=== PATIENT | male | born 1960 | race Caucasian/White ===

== ENCOUNTER 2021-12-17 13:24 | Inpatient (IN) | payer OTHER ==
[~2021-12-17] VITALS: Ht 188 cm; Wt 122.7 kg
[2021-12-17 14:42] LABS: ALANINE AMINOTRANSFERASE 68 U/L (12-78); ALBUMIN 3.4 G/DL (3.4-5.0); ALBUMIN/GLOBULIN RATIO 0.9 (1.1-1.5); ALKALINE PHOSPHATASE 93 IU/L (46-116); ANION GAP 10 (8-16); ASPARTATE AMINO TRANSFERASE 50 U/L (10-37); BILIRUBIN,TOTAL 0.6 MG/DL (0.1-1.0); BLOOD UREA NITROGEN 18 MG/DL (7-18); BUN/CREATININE RATIO 15.4 (5.4-32.0); CALCIUM 9.1 MG/DL (8.5-10.1); CHLORIDE 107 MMOL/L (99-107); CREATININE 1.17 MG/DL (0.60-1.10); GLUCOSE 144 MG/DL (70-104); SODIUM 144 MMOL/L (135-145); TOTAL CARBON DIOXIDE 26.6 MMOL/L (24-32); TOTAL PROTEIN 7.4 G/DL (6.4-8.2); eGFR 63 ML/MIN
[2021-12-17 15:38] LABS: BASOPHILS # (AUTO) 0.1 X10'3 (0-0.2); BASOPHILS % (AUTO) 0.7 % (0-1); EOSINOPHILS # (AUTO) 0.2 X10'3 (0-0.9); EOSINOPHILS % (AUTO) 2.1 % (0-6); HEMATOCRIT 40.5 % (42.0-52.0); HEMOGLOBIN 13.5 g/dl (14.0-17.9); LYMPHOCYTES # (AUTO) 1.7 X10'3 (1.1-4.8); LYMPHOCYTES % (AUTO) 18.5 % (21-51); MEAN CORPUSCULAR HEMOGLOBIN 30.5 PG (27.0-31.0); MEAN CORPUSCULAR HGB CONC 33.4 g/dL (33.0-36.5); MEAN CORPUSCULAR VOLUME 91.2 FL (78-98); MONOCYTES % (AUTO) 11.4 % (2-12); NEUTROPHILS # (AUTO) 6.2 X10'3 (1.8-7.7); NEUTROPHILS % (AUTO) 67.3 % (42-75); RED BLOOD COUNT 4.45 X10'6 (4.70-6.10); WHITE BLOOD COUNT 9.2 X10'3 (4.5-11.0)
[2021-12-17 15:52] LABS: PLATELET COUNT 140 X10'3 (140-440)
[2021-12-17 15:56] LABS: MEAN PLATELET VOLUME 8.1 FL (7.4-10.4)
[2021-12-17] MEDS ORDERED: metoprolol tartrate 50mg tablet PO ONE (16:25)
[2021-12-17] MEDS ORDERED: enoxaparin 100mg/ml syringe SUBCUT ONE (16:25)
[2021-12-17] MEDS ORDERED: magnesium hydroxide 30ml (MOM) UD suspension PO PRN (16:40)
[2021-12-17] MEDS ORDERED: PERFLUTREN PROTEIN-A MICROSPHR (Optison) 0.22 MG/ML 3ML VIAL IV ONE (16:40)
[2021-12-17] MEDS ORDERED: acetaminophen 325mg tablet PO PRN (16:40)
[2021-12-17] MEDS ORDERED: mag hydrox/Alum hydrox/simeth 30ml oral suspension PO PRN (16:40)
[2021-12-17] MEDS ORDERED: ondansetron/PF 4mg/2ml inj IV PRN (16:40)
[2021-12-17] MEDS ORDERED: nitroGLYCERIN 0.4mg/hour patch TD ONE (16:45)
[2021-12-17] MEDS ORDERED: furosemide 10 MG/1 ML 10ml inj IV ONE (16:45)
[2021-12-17] MEDS ORDERED: NO HOME MEDS (16:54)
[2021-12-17 17:29] LABS: URINE AMPHETAMINE SCREEN POSITIVE (Neg); URINE BARBITUATE SCREEN NEGATIVE (Neg); URINE BENZODIAZEPINES SCREEN NEGATIVE (Neg); URINE CANNABINOID SCREEN NEGATIVE (Neg); URINE COCAINE SCREEN NEGATIVE (Neg); URINE METHADONE SCREEN NEGATIVE (Neg); URINE OPIATE SCREEN NEGATIVE (Neg); URINE PHENCYCLIDINE SCREEN NEGATIVE (Neg)
[2021-12-17 17:59] LABS: CLARITY,URINE SLIGHTLY CLOUDY (Clear); COLOR,URINE YELLOW (Yellow); GLUCOSE, URINE NEGATIVE (Neg); KETONES,URINE TRACE mg/dl (Neg); LEUKOCYTE ESTERASE ,URINE NEGATIVE (Neg); NITRITES, URINE NEGATIVE (Neg); OCCULT BLOOD,URINE TRACE-INTACT (Neg); PROTEIN,URINE >=300 mg/dl (Neg)
[2021-12-17 18:02] LABS: UA COLLECTION TYPE VOIDED
[2021-12-17 18:17] LABS: BACTERIA,URINE NONE SEEN /HPF (Neg); MUCUS STRANDS MANY /LPF (Neg); RBC,URINE 0-2 /HPF (0-2); SQUAMOUS EPITHELIAL CELL,UR FEW /LPF (FEW); WBC,URINE 0-4 /HPF (0-4)
[2021-12-17 18:18] LABS: CAL OXALATE CRYSTALS 4+ /HPF (NEGATIVE); FINE GRANULAR CAST 0-3 /LPF (NEGATIVE); HYALINE CASTS 0-3 /LPF (NEGATIVE)
[2021-12-17] MEDS: normal saline 1000ml 1,000 ML IV SCH (19:10)
[2021-12-17] MEDS: apixaban 5mg tablet PO SCH (20:43)
[2021-12-17] MEDS: docusate sod 100mg capsule PO SCH (20:44)
--- NOTE | 2021-12-18 06:45 | NUR ---
Pt is awake. Confused at times. He didn't remember that his went home and took a long time to remember the month.
[2021-12-18] MEDS: normal saline 1000ml 1,000 ML IV SCH (07:34)
[2021-12-18] MEDS ORDERED: enoxaparin 40mg/0.4ml syringe SUBCUT SCH (08:00)
[2021-12-18] MEDS: apixaban 5mg tablet PO SCH ×2 (08:37→21:01)
[2021-12-18] MEDS: metoprolol tartrate 25mg tablet PO SCH ×2 (08:37→21:01)
[2021-12-18] MEDS: lisinopril 10 MG tablet PO SCH (08:37)
[2021-12-18] MEDS: docusate sod 100mg capsule PO SCH ×2 (08:49→20:00)
[2021-12-18 09:47] LABS: ALBUMIN 3.2 G/DL (3.4-5.0); ANION GAP 12 (8-16); BLOOD UREA NITROGEN 21 MG/DL (7-18); BUN/CREATININE RATIO 17.6 (5.4-32.0); CALCIUM 8.5 MG/DL (8.5-10.1); CHLORIDE 107 MMOL/L (99-107); CREATININE 1.19 MG/DL (0.60-1.10); GLUCOSE 119 MG/DL (70-104); POTASSIUM 3.9 MMOL/L (3.5-5.1); SODIUM 144 MMOL/L (135-145); TOTAL CARBON DIOXIDE 24.8 MMOL/L (24-32); eGFR 62 ML/MIN
[2021-12-18] MEDS ORDERED: furosemide 10 MG/1 ML 10ml inj IV ONE (09:55)
[2021-12-18 10:00] LABS: BASOPHILS # (AUTO) 0.1 X10'3 (0-0.2); EOSINOPHILS % (AUTO) 1.4 % (0-6); MEAN PLATELET VOLUME 9.2 FL (7.4-10.4); MONOCYTES # (AUTO) 1.1 X10'3 (0-0.9)
[2021-12-18 10:02] LABS: BASOPHILS % (AUTO) 0.9 % (0-1); EOSINOPHILS # (AUTO) 0.1 X10'3 (0-0.9); LYMPHOCYTES # (AUTO) 1.6 X10'3 (1.1-4.8); LYMPHOCYTES % (AUTO) 14.8 % (21-51); MONOCYTES % (AUTO) 10.3 % (2-12); NEUTROPHILS # (AUTO) 7.8 X10'3 (1.8-7.7); NEUTROPHILS % (AUTO) 72.6 % (42-75); WHITE BLOOD COUNT 10.7 X10'3 (4.5-11.0)
[2021-12-18 10:08] LABS: HEMATOCRIT 36.6 % (42.0-52.0); HEMOGLOBIN 12.5 g/dl (14.0-17.9); MEAN CORPUSCULAR HEMOGLOBIN 30.8 PG (27.0-31.0); MEAN CORPUSCULAR HGB CONC 34.3 g/dL (33.0-36.5); MEAN CORPUSCULAR VOLUME 89.8 FL (78-98); PLATELET COUNT 161 X10'3 (140-440); RED BLOOD COUNT 4.08 X10'6 (4.70-6.10)
[2021-12-18] MEDS: hydrALAZINE 20mg/ml inj. IV PRN (14:05)
--- NOTE | 2021-12-18 16:00 | NUR ---
Pt walked down the hallway naked to the bathroom. Confused at times. When he was intercepted exiting the bathroom he laughed when he was told that he can't walk in the hallway naked.
[2021-12-18] MEDS: furosemide 10 MG/1 ML 10ml inj IV SCH (21:00)
--- NOTE | 2021-12-18 23:02 | NUR ---
mother Zo Singer [phone]
--- NOTE | 2021-12-18 23:17 | NUR ---
Patient in room ORTHO 4009. I have received report from [facility] and had the opportunity to ask questions and assume patient care. Addendum: 12/19/21 at 3667 by Annika Rios RN Amended: Links added.
--- NOTE | 2021-12-19 | NUR ---
Pt. awake A & O denies c/o pain, SOB, or chest pain at this time. Pt. oriented to the room. Call light within reach and bed in low position. Addendum: 12/19/21 at 0450 by Annika Rios RN Amended: Links added.
[2021-12-19 06:00] VITALS: BP 163/74
[2021-12-19] MEDS: docusate sod 100mg capsule PO SCH (08:00)
[2021-12-19] MEDS: furosemide 10 MG/1 ML 10ml inj IV SCH (08:52)
[2021-12-19] MEDS: metoprolol tartrate 25mg tablet PO SCH (08:53)
[2021-12-19] MEDS: lisinopril 10 MG tablet PO SCH (08:53)
[2021-12-19] MEDS: apixaban 5mg tablet PO SCH (08:54)
[2021-12-19 09:10] LABS: ALBUMIN 3.5 G/DL (3.4-5.0); ANION GAP 12 (8-16); BLOOD UREA NITROGEN 23 MG/DL (7-18); BUN/CREATININE RATIO 20.7 (5.4-32.0); CALCIUM 8.8 MG/DL (8.5-10.1); CHLORIDE 104 MMOL/L (99-107); CREATININE 1.11 MG/DL (0.60-1.10); GLUCOSE 97 MG/DL (70-104); SODIUM 140 MMOL/L (135-145); TOTAL CARBON DIOXIDE 23.6 MMOL/L (24-32); eGFR 67 ML/MIN
[2021-12-19 10:00] VITALS: BP 185/102
[2021-12-19] MEDS ORDERED: FURO40TA4 PO (10:53)
[2021-12-19] MEDS ORDERED: LISI10TA27 PO (10:53)
[2021-12-19] MEDS ORDERED: APIX5TAB3 PO (10:53)
[2021-12-19] MEDS ORDERED: POTA-207 PO (10:53)
[2021-12-19] MEDS ORDERED: LOP25T PO (10:53)
[2021-12-19 11:29] VITALS: BP_SYST 156
[2021-12-19] MEDS: hydrALAZINE 20mg/ml inj. IV PRN (11:29)
--- NOTE | 2021-12-19 12:16 | NUR ---
Patient discharged in stable condition. iv removed tip intact no complications. belongings sent with pt. pt discharged with friend to home
== END 2021-12-19 11:25 | disposition home or self-care (01) | DRG 280 ==
LOC: ER 13:24 → ED HOLD 16:45 → ORTHO 4S 12-18 23:25
PROVIDERS: ADMIT Family Medicine; ATTEND Family Medicine
DX: I11.0 Hypertensive heart disease with heart failure (principal); I21.A1 Myocardial infarction type 2; I50.33 Acute on chronic diastolic (congestive) heart failure; I16.0 Hypertensive urgency; F12.90 Cannabis use, unspecified, uncomplicated; Z20.822 Contact with and (suspected) exposure to COVID-19; I48.91 Unspecified atrial fibrillation; Z91.19 Patient's noncompliance with other medical treatment and regimen; Z88.0 Allergy status to penicillin
CPT/HCPCS: 36415; 71045; 80048; 80053; 80305; 81001; 83880; 84484; 85025; 87081; 87811; 93306; 96372; 99285; G0378; J0360; J1650; J1940; J7030